=== PATIENT | female | born 1960 | race Hispanic/Latino ===

== ENCOUNTER 2022-05-12 11:49 | Emergency (ER) | payer SELFPAY ==
--- NOTE | 2022-05-12 13:57 | RAD REPORT ---
EXAM DESCRIPTION: RAD - Foot Right 3 View - 05/12/2022 1:38 pm CLINICAL HISTORY: fall COMPARISON: No comparisons FINDINGS/IMPRESSION: Mildly displaced fracture along the lateral aspect of the first distal phalanx at the articular surface. No malalignment. Calcaneal spurring. Mild midfoot degenerative changes.
--- NOTE | 2022-05-12 14:01 | RAD REPORT ---
EXAM DESCRIPTION: RAD - Ankle Right 3 View - 05/12/2022 1:38 pm CLINICAL HISTORY: foot pain COMPARISON: Foot Right 3 View dated 05/12/2022 FINDINGS/IMPRESSION: Suspected avulsion fractures along the dorsal aspect of the anterior process of the talus and navicular. Correlate with site of pain. Calcaneal spurring. No other fractures are stevie ntified.
--- NOTE | 2022-05-12 15:28 | EDPHYS ---
Physician Documentation [facility] Name: Alejandra Humphrey Age: 62 yrs Sex: Female : 1960 Arrival Date: 05/12/2022 Time: 11:51 Bed 12 Private MD: ED Physician Gurpreet Balderas HPI: 05/12 12:50 This 62 yrs old Female presents to ER via Ambulatory with complaints of Fall jmm Injury, Toe Injury. 12:50 Details of fall: The patient fell from an upright position, while walking. Onset: The jmm symptoms/episode began/occurred acutely, just prior to arrival. This is a 62 year old female with no chronic medical conditions that presents to the ED with complaints of right foot pain. Patient states slipping with her right foot bending forward. Mainly complains of pain to her right dorsum. . Historical: - Allergies: 12:17 Amoxicillin; jh6 12:17 Hydrocodone-Acetaminophen; jh6 - PMHx: 12:17 None; jh6 - Immunization history:: Adult Immunizations up to date, Client reports receiving the 2nd dose of the Covid vaccine. - Social history:: Smoking status: Patient denies any tobacco usage or history of. ROS: 16:17 Constitutional: Negative for fever, chills, and weight loss, Cardiovascular: Negative jmm for chest pain, palpitations, and edema, Respiratory: Negative for shortness of breath, cough, wheezing, and pleuritic chest pain. 16:17 MS/extremity: Positive for pain, swelling. 16:17 All other systems are negative. Exam: 16:17 Constitutional: This is a well developed, well nourished patient who is awake, alert, jmm and in no acute distress. Head/Face: atraumatic. Eyes: EOMI, no conjunctival erythema appreciated ENT: Moist Mucus Membranes Neck: Trachea midline, Supple Chest/axilla: Normal chest wall appearance and motion. Cardiovascular: Regular rate and rhythm. No edema appreciated Respiratory: Normal respirations, no respiratory distress appreciated Abdomen/GI: Non distended Back: Normal ROM Skin: General appearance color normal 16:17 Musculoskeletal/extremity: swelling noted to the right foot, ttp, 1st toe ttp. 16:17 Skin: Appearance: Color: normal in color. 16:17 Neuro: Orientation: is normal, Mentation: is normal, Memory: is normal. 16:17 Psych: Behavior/mood is pleasant, cooperative. Vital Signs: 12:12 BP 141 / 78; Pulse 90; Resp 17; Temp 97.8(O); Pulse Ox 98% on R/A; Weight 104.33 kg; 6 Height 5 ft. 7 in. (170.18 cm); Pain 8/10; 12:12 Body Mass Index 36.02 (104.33 kg, 170.18 cm) [facility] MDM: 12:50 Patient medically screened. [facility] 15:20 Data reviewed: vital signs, nurses notes. [facility] 15:26 Counseling: I had a detailed discussion with the patient and/or guardian regarding: the [facility] historical points, exam findings, and any diagnostic results supporting the discharge/admit diagnosis, radiology results, the need for outpatient follow up, to return to the emergency department if symptoms worsen or persist or if there are any questions or concerns that arise at home. 05/12 12:51 Order name: Foot Right 3 View XRAY; Complete Time: 14:05 [facility] 05/12 12:51 Order name: Ankle Right 3 View XRAY; Complete Time: 14:05 [facility] 05/12 14:07 Order name: Posterior Leg Splint; Complete Time: 15:07 [facility] Administered Medications: No medications were administered Disposition: 05/13 09:30 Co-signature as Attending Physician, Gurpreet Balderas DO I was immediately available on-site ms3 in the Emergency Department for consultation in the care of the patient.. Disposition Summary: 05/12/22 15:27 Discharge Ordered Location: Home [facility] Condition: Stable [facility] Diagnosis - Talus Fracture [facility] - Toe Fracture [facility] Followup: [facility] - With: Familia Sorto DPM - When: 2 - 3 days - Reason: Recheck today's complaints, Continuance of care, Re-evaluation by your physician Discharge Instructions: - Discharge Summary Sheet [facility] - Tarsal Navicular Fracture [facility] - Toe Fracture [facility] Forms: - Medication Reconciliation Form [facility] - Thank You Letter [facility] - Antibiotic Education [facility] - Prescription Opioid Use [facility] Prescriptions: - orphenadrine citrate 100 mg Oral Tablet Sustained Release - take 1 tablet by ORAL route 2 times per day As needed; 20 tablet; Refills: 0, [facility] Product Selection Permitted Signatures: Dispatcher [employer] EDMS Perez Mcintyre PA PA [facility] Gurpreet Balderas DO DO ms3 Joleen Hunter RN RN jh6 Corrections: (The following items were deleted from the chart) 05/12 16:14 12:50 This is a 62 year old female with no chronic medical conditions that presents to [facility] the ED with complaints of left foot pain. . [facility] 16:17 12:50 This is a 62 year old female with no chronic medical conditions that presents to [facility] the ED with complaints of right foot pain. Patient states tripping. [facility]
--- NOTE | 2022-05-12 15:28 | ER ---
Nurse's Notes [facility] Name: Alejandra Humphrey Age: 62 yrs Sex: Female : 1960 Arrival Date: 05/12/2022 Time: 11:51 Bed 12 Private MD: Diagnosis: Talus Fracture;Toe Fracture Presentation: 05/12 12:12 Chief complaint: Patient states: slipped on water and rt foot great toe bent under 6 causing pain and decreased rom. Coronavirus screen: Vaccine status: Patient reports receiving the 2nd dose of the covid vaccine. Ebola Screen: Patient negative for fever greater than or equal to 101.5 degrees Fahrenheit, and additional compatible Ebola Virus Disease symptoms Patient denies exposure to infectious person. Patient denies travel to an Ebola-affected area in the 21 days before illness onset. Initial Sepsis Screen: Does the patient meet any 2 criteria? No. Patient's initial sepsis screen is negative. Does the patient have a suspected source of infection? No. Patient's initial sepsis screen is negative. Risk Assessment: Do you want to hurt yourself or someone else? Patient reports no desire to harm self or others. Onset of symptoms was May 12, 2022. 12:12 Method Of Arrival: Ambulatory [facility] 12:12 Acuity: BASIA 4 [facility] 12:16 Care prior to arrival: Medication(s) given: Motrin, 800 mg. [facility] Triage Assessment: 12:15 General: Appears in no apparent distress. Behavior is calm, cooperative. Pain: [facility] Complains of pain in instep of left foot, dorsum of left foot, left first toe and Left first toenail Pain does not radiate. Pain radiates to right foot Pain currently is 8 out of 10 on a pain scale. Quality of pain is described as sharp, shooting, throbbing, Pain began suddenly, Is continuous, Aggravated by increased activity. Historical: - Allergies: 12:17 Amoxicillin; [facility] 12:17 Hydrocodone-Acetaminophen; [facility] - PMHx: 12:17 None; [facility] - Immunization history:: Adult Immunizations up to date, Client reports receiving the 2nd dose of the Covid vaccine. - Social history:: Smoking status: Patient denies any tobacco usage or history of. Screenin:50 Abuse screen: Denies threats or abuse. Nutritional screening: No deficits noted. jb4 Tuberculosis screening: No symptoms or risk factors identified. Fall Risk Fall in past 12 months (25 points). Total Alcantara Fall Scale indicates Low Risk Score (25-44 pts). Fall prevention measures have been instituted. Side Rails Up X 2 Placed close to Nursing Station Frequent Obs/Assesments occuring Family Present and informed to notify staff if they need to leave bedside As available Patient and Family Educated on Fall Prevention Program and strategies. Assessment: 15:50 Reassessment: Patient appears in no apparent distress at this time. Patient and/or jb4 family updated on plan of care and expected duration. Pain level reassessed. Patient is alert, oriented x 3, equal unlabored respirations, skin warm/dry/pink. Vital Signs: 12:12 BP 141 / 78; Pulse 90; Resp 17; Temp 97.8(O); Pulse Ox 98% on R/A; Weight 104.33 kg; 6 Height 5 ft. 7 in. (170.18 cm); Pain 8/10; 12:12 Body Mass Index 36.02 (104.33 kg, 170.18 cm) [facility] ED Course: 11:51 Patient arrived in ED. mr 11:54 Perez Mcintyre PA is PHCP. m 11:54 Gurpreet Balderas DO is Attending Physician. [facility] 12:14 Triage completed. 6 12:16 Arm band placed on right wrist. ice to rt foot. jh6 13:40 Foot Right 3 View XRAY In Process Unspecified. EDMS 13:40 Ankle Right 3 View XRAY In Process Unspecified. EDMS 14:25 Chucho Epstein, RN is Primary Nurse. jl7 15:07 Orthoglass splint: Posterior short lleg splint applied on right leg. zm 15:27 Familia Sorto DPM is Referral Physician. [facility] 15:50 Patient has correct armband on for positive identification. Bed in low position. Call jb4 light in reach. Side rails up X 1. 15:50 No provider procedures requiring assistance completed. Patient did not have IV access jb4 during this emergency room visit. Administered Medications: No medications were administered Medication: 15:50 VIS not applicable for this client. jb4 Outcome: 15:27 Discharge ordered by . [facility] 15:50 Discharged to home via wheelchair, with family. jb4 15:50 Condition: stable 15:50 Discharge instructions given to patient, Instructed on discharge instructions, follow up and referral plans. medication usage, Demonstrated understanding of instructions, follow-up care, medications, Prescriptions given X 1. 15:51 Patient left the ED. jb4 Signatures: Dispatcher [employer] EDMS Perez Mcintyre PA PA jmm Rivera, Johanne mr Piero Valdes, RN RN jb4 Chucho Epstein RN RN jl7 Joleen Hunter RN RN jh6 Mica Sharma Corrections: (The following items were deleted from the chart) 15:51 15:50 Discharged to home ambulatory, jb4 jb4
[2022-05-12 16:02] VITALS: BP 141/78; TEMP 97.8; O2SAT 98
== END 2022-05-12 15:51 | disposition home or self-care (01) ==
LOC: ER 11:49
PROC: 2W3QX1Z Immobilization of Right Lower Leg using Splint (ICD-10-PCS; principal; 2022-05-12)
DX: S92.401A Displaced unspecified fracture of right great toe, initial encounter for closed fracture (principal); S92.101A Unspecified fracture of right talus, initial encounter for closed fracture

== ENCOUNTER 2025-03-17 21:14 | Emergency (ER) | payer OTHER, SELFPAY ==
--- OUTSIDE RECORDS SUMMARY | 2025-03-17 21:30 | XMS REPORT | Continuity of Care Document ---
Author Name Unknown Address [address] [facility] [place] [address] Organization [facility] [place] Address [address] [facility] [place] [address] Care Team Providers Care Interventional Pain Physician Name Role Phone IRMA MARROQUIN Attending Clinician Un[facility] LAB Attending Clinician Unavailable Payers Payer Name Policy Type Policy Number Effective Date Expirati on Date Source DailyBurn [employer] CLASSIC SIMPLE 7 [id number] 2024 00:00:00 [facility] RUDI [employer] [employer]AY FOCUS 9 [id number] 2024 00:00:00 Problems Condition Name Condition Details Condition Category Status Onset Date Resolution Date Last Treatment Date Treating Clinician Comments Source Encounter for screening for malignant neoplasm of colon Encounter for screening for malignant neoplasm of colon Disease Active 01-28 00:00: 00 Albertina Seybold - Externa l Class 1 obesity due to excess calories without serious comorbidit y with body mass index (BMI) of 33.0 to 33.9 in adult Class 1 obesity due to excess calories without serious comorbidit y with body mass index (BMI) of 33.0 to 33.9 in adult Disease Active 01-28 00:00: 00 Albertina Seybold - Externa l Depression with anxiety Depression with anxiety Disease Active 12-24 00:00: 00 Albertina Seybold - Externa l Seasonal allergies Seasonal allergies Disease Active Albertina Seybold - Externa l Allergies, Adverse Reactions, Alerts Allergy Name Allergy Type Status Severity Reaction(s) Onset Date Inactive Date Treating Clinician Comments Source Penicill ins Propensi ty to adverse reaction s Active 12-24 00:00: 00 Albertina suh Social History Social Habit Start Date Stop Date Quantity Comments Source ASSERTION Not Albertina Carlos - External Sexual orientation Yina mota Terrance - External Alcoholic beverage intake 2025-01-28 00:00:00 2025-01-28 00:00:00 Lifetime non-drinker (finding) Albertina Carlos - External History of Social function 2025-01-28 00:00:00 2025-01-28 00:00:00 Albertina Carlos - External Tobacco use and exposure 2024-12-24 00:00:00 2024-12-24 00:00:00 Smokeless tobacco non-user Albertina Carlos - External Sex 2023-08-31 21:43:30 2023-08-31 21:43:30 Female (finding) Albertina Carlos - External Sex assigned at 1960 00:00:00 1960 00:00:00 Albertina Carlos - External Smoking Status Start Date Stop Date Source Never smoked tobacco Albertina Carlos - External Medications Ordered Medication Name Filled Medication Name Start Date Stop Date Current Medication? Ordering Clinician Indication Dosage Frequency Signature (SIG) Comments Components Source Loratadine 10 MG oral Capsule 01-28 11:54: 05 Yes 10mg QD Take 1 capsule (10 mg total) by mouth daily. Albertina suh Multiple Vitamins-Mi nerals (PoolamiUM MINIS WOMEN 50+ OR) 01-28 11:54: 05 Yes 1{tbl} QD Take 1 tablet by mouth daily. Albertina suh Loratadine 10 MG oral Capsule 12-24 16:19: 04 Yes 10mg QD Take 1 capsule (10 mg total) by mouth daily. Albertina suh Multiple Vitamins-Mi nerals (CENTRUM MINIS WOMEN 50+ OR) 12-24 16:19: 04 Yes 1{tbl} QD Take 1 tablet by mouth daily. Albertina suh Quetiapine Fumarate 50 MG oral Tablet 2-18 00:00: 00 Yes 50mg Take 1 tablet (50 mg total) by mouth at bedtime. Albertina Martinsa angeli Sertraline HCl 50 MG oral Tablet 12-11 00:00: 00 Yes 50mg QD Take 1 tablet (50 mg total) by mouth daily. Albertina Martinsa angeli Albuterol HFA 108 (90 Base) MCG/ACT IN AERS 2- 00:00: 00 Yes 1{puff} Q.25D Inhale 1-2 puffs into the lungs 4 times daily. Albertina suh Vital Signs Vital Name Observation Time Observation Value Comments S ource Systolic blood pressure 2025-01-28 16:53:00 133 mm[Hg] Albertina Causey ld - External Diastolic blood pressure 2025-01-28 16:53:00 81 mm[Hg] Albertina chava ortiz - External Heart rate 2025-01-28 16:53:00 73 /min Trixie Carlos - External Body temperature 2025-01-28 16:53:00 36.67 Chantel Albertina armandosigrid - External Respiratory rate 2025-01-28 16:53:00 16 /min Albertina Sernasigrid - External Body height 2025-01-28 16:53:00 170.2 cm Zuri Carlos - External Body weight 2025-01-28 16:53:00 97.523 kg Zuri Carlos - External BMI 2025-01-28 16:53:00 33.67 kg/m2 Zuri Carlos - External Oxygen saturation in Arterial blood by Pulse oximetry 2025-01-28 16:53:00 94 /min Albertian Causey ld - External Systolic blood pressure 2024-12-24 22:59:00 138 mm[Hg] Albertina chava ortiz - External Diastolic blood pressure 2024-12-24 22:59:00 70 mm[Hg] Albertina chava angel - External Heart rate 2024-12-24 22:15:00 67 /min Trixie Carlos - External Body temperature 2024-12-24 22:15:00 36.83 Chantel Albertina armandoold - External Respiratory rate 2024-12-24 22:15:00 16 /min Albertina armandoold - External Body height 2024-12-24 22:15:00 170.2 cm Zuri ey Seybold - External Body weight 2024-12-24 22:15:00 100.245 kg Zuri ey Seybold - External BMI 2024-12-24 22:15:00 34.61 kg/m2 Zuri ey Seybold - External Oxygen saturation in Arterial blood by Pulse oximetry 2024-12-24 22:15:00 100 /min Albertina Causey ld - External Procedures Procedure Date / Time Performed Performing Clinicia n Source QUANTAF 2025-01-28 12:30:35 Jonas Irma reyna Seybold - External Encounters Start Date/Time End Date/Time Encounter Type Admission Type Attending [facility] Care Department Encounter ID Source 2025-02-01 00:00:00 2025-02-01 00:00:00 Outpatient IRMA MARROQUIN [id number] [facility]ina [facility] 2025-01-28 12:45:00 2025-01-28 12:45:00 Outpatient LAB90 ALBERTINA MATTSON [id number] Albertina [facility] 2025-01-28 12:00:00 2025-01-28 12:00:00 Outpatient JONASIRMA [id number] Albertina [facility] 2025-01-22 00:00:00 2025-01-22 00:00:00 Outpatient IRMA MARROQUIN [id number] [facility] 2025-01-21 09:02:59 2025-01-21 09:02:59 Outpatient SFA SFA [id number] Ghanshyam F Jin 2024-12-24 16:30:00 2024-12-24 16:30:00 Outpatient IRMA MARROQUIN [id number] [facility] 2024-12-08 10:17:27 2024-12-08 10:17:27 Outpatient SFA SFA [id number] Ghanshyam F Jin 2024-11-05 08:48:28 2024-11-05 08:48:28 Outpatient SFA SFA [id number] Ghanshyam Yue Jin 2024-08-06 17:35:35 2024-08-06 17:35:35 Outpatient SFA SFA [id number] Ghanshyam Abdi 2024-05-31 15:55:24 2024-05-31 15:55:24 Outpatient SFA SFA [id number] Ghanshyam Abdi 2024-05-29 08:30:00 2024-05-29 08:30:00 Outpatient IRMA MARROQUIN ALBERTINA MATTSON [id number] Albertina Carlos 2024-03-26 12:07:20 2024-03-26 12:07:20 Outpatient SFA SFA [id number] Ghanshyam Abdi 2024-01-30 10:16:29 2024-01-30 10:16:29 Outpatient SFA SFA [id number] Ghanshyam Abdi 2024-01-25 08:45:08 2024-01-25 08:45:08 Outpatient SFA SFA [id number] Ghanshyam Abdi 2023-12-19 10:09:06 2023-12-19 10:09:06 Outpatient SFA SFA [id number] Ghanshyam Abdi 2023-12-07 09:12:45 2023-12-07 09:12:45 Outpatient SFA SFA 4 Ghanshyam Abdi 2023-12-05 09:10:46 2023-12-05 09:10:46 Outpatient SFA SFA [id number] Ghanshyam Abdi 2023-08-10 10:41:51 2023-08-10 10:41:51 Outpatient SFA SFA [id number] Ghanshyam Abdi 2023-07-11 12:18:32 2023-07-11 12:18:32 Outpatient SFA SFA [id number] Ghanshyam Abdi 2023-07-04 09:48:45 2023-07-04 09:48:45 Outpatient SFA SFA [id number] Ghanshyam Abdi 2023-05-26 11:29:46 2023-05-26 11:29:46 Outpatient SFA SFA [id number] Ghanshyam Abdi 2023-05-09 16:59:22 2023-05-09 16:59:22 Outpatient SFA SFA [id number] Ghanshyam Abdi Results Test Description Test Time Test Comments Results Result Co mments Source Albertina Carlos - ExternalVITAMIN D, 25 [id number] 02:08:33* Test Item Value Reference Range Interpretation Comme [facility] VITAMIN D, 25 OH (test code = 4958) 30 NG/ML SEE BELOW NOTE: 25-HYDR OXYVITAMIN D ASSAY INCLUDES 25-HYDROXYVITAMIN D2 AND D3. INTERPRETIVE RANGES PEDIATRIC (<17 YEARS) . . . . . . . . . . . NG/ML 20-100ADULT: INSUFFICIENT . . . . . . . . . . . . . . NG/ML <20 SUBOPTIMAL . . . . . . . . . . . . . . . NG/ML 20-29 OPTIMAL . . . . . . . . . . . . . . . . . NG/ML 30-100 UNLESS OTHERWISE INDICATED, ALL TESTING PERFORMED AT [facility] [address] [place] [address] NET DEVELOPER ARCHITECT: SELENA JO M.D. CLIA NUMBER [id number] [facility] [place]. [id number] TSH, THIRD [id number] 00:29:59* Test Item Value Reference Range Interpretation Comme [facility] TSH, THIRD GENERATION (test code = 2821) 0.780 UIU/ML 0.400-4.100 COMPREHENSIVE METABOLIC [id number] 00:29:07* Test Item Value Reference Range Interpretation Comme [facility] GLUCOSE (test code = 2217) 90 MG/DL 70-99 BUN (test code = 2208) 13 MG/DL 8-23 CREATININE (test code = 2214) 0.70 MG/DL 0.60-1.30 eGFR (2020 CKD-EPI) (test co de = 36105) 96 ML/MIN/1.73 >60 CALC BUN/CREAT (test code = 2235) 19 RATIO 6-28 SODIUM (test code = 2231) 142 MEQ/L 133-146 POTASSIUM (test code = 2228) 4.5 MEQ/L 3.5-5.4 CHLORIDE (test code = 2215) 107 MEQ/L 95-107 CARBON DIOXIDE (test code = 2206) 26 MEQ/L 19-31 CALCIUM (test code = 2209) 9.1 MG/DL 8.5-10.5 PROTEIN, TOTAL (test code = 222) 6.2 G/DL 6.1-8.3 ALBUMIN (test code = 2201) 4.2 G/DL 3.5-5.2 CALC GLOBULIN (test code = 2240) 2.0 G/DL 1.9-3.7 CALC A/G RATIO (test code = 2233) 2.1 RATIO 1.0-2.6 BILIRUBIN, TOTAL (test code = 7) 0.4 MG/DL <=1.2 ALKALINE PHOSPHATASE (test code = 4) 194 U/L 40-140 H AST (test code = 2218) 27 U/L 9-40 ALT (test code = 2219) 24 U/L 5-40 LIPID [id number] 00:29:07* Test Item Value Reference Range Interpretation Comme nts CHOLESTEROL (test code = 0) 261 MG/DL <200 H TRIGLYCERIDES (test code = 2232) 120 MG/DL <150 HDL CHOLESTEROL (test code = 0) 59 MG/DL >39 CALC LDL CHOL (test code = 2236) 177 MG/DL <100 H NOTE: CALCULATED LDL IS BASED ON ATIF-ENCISO METHOD WHICHINCLUDES ADJUSTABLE TRIGLYCERIDE:VLDL CHOLESTEROL RATIO.THIS FACTOR VARIES BY MEASURED TRIGLYCERIDE AND NON-HDLCHOLESTEROL CONCENTRATIONS WITH INCREASED CALCULATED LDL SEENIN HIGHER TRIGLYCERIDE OR LOWER NON-HDL SPECIMENS. FOR MOREINFORMATION, SEE CLIENT ANNOUNCEMENT AT [email or web address] [email or web address] RATIO LDL/HDL (test code = 2237) 3.00 RATIO <3.22 HEMOGLOBIN [id number] 03:11:28* Test Item Value Reference Range Interpretation Comme nts HEMOGLOBIN A1c (test code = 21265) 5.2 % 4.2-5.6 CBC W/AUTO DIFF WITH [id number] 02:44:35* Test Item Value Reference Range Interpretation Comme nts WBC (test code = 1001) 5.1 K/UL 3.5-11.0 RBC (test code = 1002) 4.08 M/UL 3.80-5.40 HEMOGLOBIN (test code = 1003) 12.6 G/DL 11.5-15.5 HEMATOCRIT (test code = 1004) 37.8 % 34.0-45.0 MCV (test code = 1005) 92.6 fL 80.0-99.0 MCH (test code = 1006) 30.9 PG 25.0-33.0 MCHC (test code = 1007) 33.3 G/DL 31.0-36.0 RDW (test code = 1038) 12.2 % 11.5-15.0 NEUTROPHILS (test code = 1008) 56.0 % LYMPHOCYTES (test code = 1010) 32.3 % MONOCYTES (test code = 1011) 6.7 % EOSINOPHILS (test code = 1012) 4.2 % BASOPHILS (test code = 1013) 0.6 % IMMATURE GRANULOCYTES (test code = 1036) 0.2 % NUCLEATED RBCS (test code = 1065) 0.0 /100 WBC'S See_Comment [Automated [employer] ge] The system which generated this result transmitted reference range: 0.0. The reference range was not used to interpret this result as normal/abnormal. PLATELET COUNT (test code = 1015) 330 K/UL 130-400 ABSOLUTE NEUTROPHILS (test code = 1066) 2.83 K/UL 1.50-7.50 ABSOLUTE LYMPHOCYTES (test code = 1067) 1.63 K/UL 1.00-4.00 ABSOLUTE MONOCYTES (test code = 1068) 0.34 K/UL 0.20-1.00 ABSOLUTE EOSINOPHILS (test code = 1040) 0.21 K/UL 0.00-0.50 ABSOLUTE BASOPHILS (test code = 1069) 0.03 K/UL 0.00-0.20 ABS IMMATURE GRANULOCYTES (test code = 1020) 0.01 K/UL 0.00-0.10 ABS NUCLEATED RBCS (test code = 22834) 0.00 K/UL 0.00-0.11 LIPID [id number] 06:56:10* Test Item Value Reference Range Interpretation Comme nts CHOLESTEROL (test code = 2210) 288 MG/DL <200 H TRIGLYCERIDES (test code = 2232) 204 MG/DL <150 H HDL CHOLESTEROL (test code = 2220) 69 MG/DL >39 CALC LDL CHOL (test code = 2237) 183 MG/DL <100 H NOTE: CALCULATED LDL IS BASED ON ATIF-ENCISO METHOD WHICHINCLUDES ADJUSTABLE TRIGLYCERIDE:VLDL CHOLESTEROL RATIO.THIS FACTOR VARIES BY MEASURED TRIGLYCERIDE AND NON-HDLCHOLESTEROL CONCENTRATIONS WITH INCREASED CALCULATED LDL SEENIN HIGHER TRIGLYCERIDE OR LOWER NON-HDL SPECIMENS. FOR MOREINFORMATION, SEE CLIENT ANNOUNCEMENT AT [email or web address] [email or web address] RATIO LDL/HDL (test code = 2237) 2.65 RATIO <3.22 COMPREHENSIVE METABOLIC [id number] 06:56:10* Test Item Value Reference Range Interpretation Comme nts GLUCOSE (test code = 2216) 104 MG/DL 70-99 H BUN (test code = 2207) 12 MG/DL 8-23 CREATININE (test code = 2213) 0.65 MG/DL 0.60-1.30 eGFR (2020 CKD-EPI) (test code = 82152) 98 ML/MIN/1.73 >60 CALC BUN/CREAT (test code = 2234) 18 RATIO 6-28 SODIUM (test code = 2230) 140 MEQ/L 133-146 POTASSIUM (test code = 2227) 4.7 MEQ/L 3.5-5.4 CHLORIDE (test code = 2214) 103 MEQ/L 95-107 CARBON DIOXIDE (test code = 2205) 21 MEQ/L 19-31 CALCIUM (test code = 2208) 9.8 MG/DL 8.5-10.5 PROTEIN, TOTAL (test code = 2228) 6.7 G/DL 6.1-8.3 ALBUMIN (test code = 2200) 4.7 G/DL 3.5-5.2 CALC GLOBULIN (test code = 2240) 2.0 G/DL 1.9-3.7 CALC A/G RATIO (test code = 2233) 2.4 RATIO 1.0-2.6 BILIRUBIN, TOTAL (test code = 2206) 0.3 MG/DL <=1.2 ALKALINE PHOSPHATASE (test code = 2203) 172 U/L 40-140 H AST (test code = 2217) 27 U/L 9-40 ALT (test code = 221) 19 U/L 5-40 UNLESS OTHERWISE INDICATED, ALL TESTING PERFORMED AT [facility] [address] [place] [address] NET DEVELOPER ARCHITECT: SELENA JO M.D. CLIA NUMBER [id number] [facility] [place] [place]. [id number] HEMOGLOBIN [id number] 04:37:14* Test Item Value Reference Range Interpretation Comme nts HEMOGLOBIN A1c (test code = 29881) 5.5 % 4.2-5.6 CBC W/AUTO DIFF WITH [id number] 03:05:18* Test Item Value Reference Range Interpretation Comme nts WBC (test code = 1001) 5.7 K/UL 3.5-11.0 RBC (test code = 1002) 4.24 M/UL 3.80-5.40 HEMOGLOBIN (test code = 1003) 13.3 G/DL 11.5-15.5 HEMATOCRIT (test code = 1004) 38.3 % 34.0-45.0 MCV (test code = 1005) 90.3 fL 80.0-99.0 MCH (test code = 1006) 31.4 PG 25.0-33.0 MCHC (test code = 1007) 34.7 G/DL 31.0-36.0 RDW (test code = 1038) 11.9 % 11.5-15.0 NEUTROPHILS (test code = 1008) 59.7 % LYMPHOCYTES (test code = 1010) 32.2 % MONOCYTES (test code = 1011) 5.8 % EOSINOPHILS (test code = 1012) 1.4 % BASOPHILS (test code = 1013) 0.5 % IMMATURE GRANULOCYTES (test code = 1036) 0.4 % NUCLEATED RBCS (test code = 1065) 0.0 /100 WBC'S See_Comment [Automated messa ge] The system which generated this result transmitted reference range: 0.0. The reference range was not used to interpret this result as normal/abnormal. PLATELET COUNT (test code = 1015) 331 K/UL 130-400 ABSOLUTE NEUTROPHILS (test code = 1066) 3.39 K/UL 1.50-7.50 ABSOLUTE LYMPHOCYTES (test code = 1067) 1.83 K/UL 1.00-4.00 ABSOLUTE MONOCYTES (test code = 1068) 0.33 K/UL 0.20-1.00 ABSOLUTE EOSINOPHILS (test code = 1040) 0.08 K/UL 0.00-0.50 ABSOLUTE BASOPHILS (test code = 1069) 0.03 K/UL 0.00-0.20 ABS IMMATURE GRANULOCYTES (test code = 1020) 0.02 K/UL 0.00-0.10 ABS NUCLEATED RBCS (test code = 52024) 0.00 K/UL 0.00-0.11 TSH, THIRD [id number] 06:56:39* Test Item Value Reference Range Interpretation Comme nts TSH, THIRD GENERATION (test code = 2821) 1.140 UIU/ML 0.400-4.100 UNLESS OTHERWISE INDICATED, ALL TESTING [facility]MED [facility] [address] [place] [address] NET DEVELOPER ARCHITECT: MERRICK QUARLES M.D. CLIA NUMBER [id number] [facility] [place] [place]. [id number] CBC W/AUTO DIFF WITH [id number] 02:39:46* Test Item Value Reference Range Interpretation Comme nts WBC (test code = 1001) 7.8 K/UL 3.5-11.0 RBC (test code = 1002) 4.41 M/UL 3.80-5.40 HEMOGLOBIN (test code = 1003) 13.4 G/DL 11.5-15.5 HEMATOCRIT (test code = 1004) 38.8 % 34.0-45.0 MCV (test code = 1005) 88.0 fL 80.0-99.0 MCH (test code = 1006) 30.4 PG 25.0-33.0 MCHC (test code = 1007) 34.5 G/DL 31.0-36.0 RDW (test code = 1038) 12.5 % 11.5-15.0 NEUTROPHILS (test code = 1008) 60.4 % LYMPHOCYTES (test code = 1010) 31.3 % MONOCYTES (test code = 1011) 6.5 % EOSINOPHILS (test code = 1012) 0.9 % BASOPHILS (test code = 1013) 0.5 % IMMATURE GRANULOCYTES (test code = 1036) 0.4 % NUCLEATED RBCS (test code = 1065) 0.0 /100 WBC'S See_Comment [Automated messa ge] The system which generated this result transmitted reference range: 0.0. The reference range was not used to interpret this result as normal/abnormal. PLATELET COUNT (test code = 1015) 372 K/UL 130-400 ABSOLUTE NEUTROPHILS (test code = 1066) 4.71 K/UL 1.50-7.50 ABSOLUTE LYMPHOCYTES (test code = 1067) 2.44 K/UL 1.00-4.00 ABSOLUTE MONOCYTES (test code = 1068) 0.51 K/UL 0.20-1.00 ABSOLUTE EOSINOPHILS (test code = 1040) 0.07 K/UL 0.00-0.50 ABSOLUTE BASOPHILS (test code = 1069) 0.04 K/UL 0.00-0.20 ABS IMMATURE GRANULOCYTES (test code = 1020) 0.03 K/UL 0.00-0.10 ABS NUCLEATED RBCS (test code = 12867) 0.00 K/UL 0.00-0.11
--- NOTE | 2025-03-17 23:38 | RAD REPORT ---
EXAMINATION: XR Elbow Right 3 View CLINICAL INDICATION: Female, 64 years old. fall RIGHT TECHNIQUE: 3 view radiographs of the right elbow were obtained. COMPARISON: No prior exam. FINDINGS: No evidence of fracture or dislocation. Normal alignment. No joint effusion. No evidence of arthropathy. No suspicious focal bone lesion. Soft tissues are unremarkable. IMPRESSION: No acute or significant abnormalities.
--- NOTE | 2025-03-17 23:38 | RAD REPORT ---
PROCEDURE: CT Head and Cervical Spine Without Intravenous Contrast CLINICAL INDICATION: The patient is 64 years old and is Female; head injury TECHNIQUE: Axial computed tomography images of the head/brain and cervical spine without intravenous contrast. Sagittal and coronal reformatted images were created and reviewed. This CT exam was performed using one or more of the following dose reduction techniques: automated exposure control, adjustmen t of the mA and/or kV according to patient size, and/or use of iterative reconstruction technique. DLP: 1262 mGy*cm COMPARISON: None. FINDINGS: BRAIN: Cerebral volume loss and chronic small vessel ischemic changes. No hemorrhage. No mass effect or midline shift. VENTRICLES: Unremarkable. No ventriculomegaly. SKULL: No acute fracture. SINUSES: Unremarkable as visualized. No acute sinusitis. MASTOID AIR CELLS: Unremarkable as visualized. No mastoid effusion. VERTEBRAE: Midcervical spondylosis, worse at C5-6 and C6-7. Straightening of the cervical lordosis. No acute fracture. DISCS/SPINAL CANAL/NEURAL FORAMINA: Multilevel facet and uncovertebral joint hypertrophy. No spinal canal stenosis. SOFT TISSUES: Unremarkable. IMPRESSION: 1. No acute intracranial hemorrhage, hydrocephalus or herniation. 2. No acute cervical spine fracture or subluxation. 3. Straightening of the cervical lordosis. Findings may be positional or due to muscle spasm. 4. Midcervical spondylosis, worse at C5-6 and C6-7. 5. Cerebral volume loss and chronic small vessel ischemic changes. Consider MRI brain for further evaluation. Electronically signed by: Jase Peterson DO 03/17/2025 11:26 PM CDT 9 Due to temporary technical issues with the PACS/Coeurative reporting system, reports are being yudy d by the in-house radiologist without review as a courtesy to ensure prompt reporting the interpreting radiologist is fully responsible for the content of the report. Transcribed Date/Time: 03/17/2025 11:37 PM
--- NOTE | 2025-03-17 23:39 | RAD REPORT ---
EXAM: XR Knee Right 3 View HISTORY: [facility] MAIN PAIN Bed Name: 11 COMPARISON: None TECHNIQUE: 3 views of the right knee were obtained. FINDINGS: No knee effusion is seen. There is no evidence of acute fracture or dislocation. Mild-to-m oderate degenerative changes are seen. No soft tissue swelling or other soft tissue abnormality is present. IMPRESSION: No evidence of acute osseous abnormality. Wicf-dm-dgxbagoa tricompartmental osteoarthriti c changes.
--- NOTE | 2025-03-17 23:40 | RAD REPORT ---
EXAMINATION: XR Ankle Right 3 View CLINICAL INDICATION: Female, 64 years old. [facility] MAIN right ankle pain Bed Name: TECHNIQUE: 3 view radiographs of the right ankle were obtained. COMPARISON: 05/12/2022 FINDINGS: No bone or joint abnormality seen. Moderate calcaneal spur. IMPRESSION: No acute osseous abnormalities. Moderate calcaneal spur.
--- NOTE | 2025-03-17 23:42 | RAD REPORT ---
EXAMINATION: XR Foot Right 3 View CLINICAL INDICATION: Female, 64 years old. [facility] MAIN Right foot pain Bed Name: TECHNIQUE: 3 view radiographs of the right foot were obtained. COMPARISON: 07/13/2022. FINDINGS: Triangular fracture fragments along the bases of the first and second proximal phalanges. M edial and dorsal soft tissue swelling. Moderate calcaneal spur. No evidence of arthropathy or other focal bone lesion. Mild midfoot and interphalangeal joint degenerative changes. IMPRESSION: Small triangular fracture fragments along the bases of the first and second proximal phalanges.
--- NOTE | 2025-03-18 00:31 | EDPHYS ---
Physician Documentation [facility] Name: Alejandra Humphrey Age: 64 yrs Sex: Female : 1960 Arrival Date: 03/17/2025 Time: 21:14 Bed 11 Private MD: ED Physician Erasmo Frausto HPI: 03/17 21:33 This 64 yrs old Female presents to ER via Unassigned with complaints of Fall sp4 Injury. 03/18 20:35 64-year-old female presents complaining of a fall out of swimming pool. Head injury, sp4 presents with right elbow contusion and abrasion, presents with a right knee contusion and abrasion, presents with a right foot with multiple abrasions and pain. Also right foot swelling.. Historical: - Allergies: 03/17 21:51 Amoxicillin; ha1 21:51 Hydrocodone-Acetaminophen; ha1 - PMHx: 21:51 Depressive disorder; ha1 - Immunization history:: Adult Immunizations unknown. - Infectious Disease History:: Denies. - Social history:: Smoking status: unknown. - Family history:: not pertinent. ROS: 03/18 20:35 Constitutional: Negative for fever, chills, and weight loss, positive for head sp4 injury, right elbow contusion, positive for right elbow abrasion, positive for right knee contusion, positive right knee abrasion, positive for right foot pain swelling abrasion All other systems are negative, Exam: 20:35 Constitutional: This is a well developed, well nourished patient who is awake, alert, sp4 and in no acute distress. Intoxicated female, Head/Face: Normocephalic, atraumatic. C-collar in place Eyes: Pupils equal round and reactive to light, extra-ocular motions intact. Lids and lashes normal. Conjunctiva and sclera are not injected. Cornea within normal limits. Periorbital areas with no swelling, redness, or edema. ENT: Nares patent. No nasal discharge, no septal abnormalities noted. Tympanic membranes are normal and external auditory canals are clear. Oropharynx with no redness, swelling, or masses, exudates, or evidence of obstruction, uvula midline. Mucous membranes moist. Neck: Trachea midline, no thyromegaly or masses palpated, c-collar in place Chest/axilla: Normal chest wall appearance and motion. Nontender with no deformity. No lesions are appreciated. Cardiovascular: Regular rate and rhythm with a normal S1 and S2. No gallops, murmurs, or rubs. Normal PMI, no JVD. No pulse deficits. Respiratory: Lungs have equal breath sounds bilaterally, clear to auscultation and percussion. No rales, rhonchi or wheezes noted. No increased work of breathing, no retractions or nasal flaring. Abdomen/GI: Soft, with normal bowel sounds. No distension or tympany. No guarding or rebound. No evidence of tenderness throughout. Back: No spinal tenderness. No costovertebral tenderness. Skin: Warm, dry with normal turgor. Normal color with no rashes, no lesions, and no evidence of cellulitis. MS/ Extremity: Pulses equal, no cyanosis. Neurovascular intact. Full, normal range of motion. Positive for right foot swelling contusion abrasion to . Positive right foot swelling, positive right knee abrasion, positive right elbow abrasion Neuro: Awake and alert, GCS 15, oriented to person, place, time, and situation. Cranial nerves II-XII grossly intact. Motor strength 5/5 in all extremities. Sensory grossly intact. Psych: Awake, alert, with orientation to person, place and time. Behavior, mood, and affect are within normal limits Vital Signs: 03/17 21:41 BP 115 / 78; Pulse 84; Resp 18; Temp 98.2(O); Pulse Ox 98% on R/A; Weight 95.25 kg; oe Height 5 ft. 7 in. ; 23:00 BP 127 / 68; Pulse 79; Resp 18 S; Pulse Ox 98% on R/A; ha1 03/18 01:00 BP 125 / 67; Pulse 81; Resp 16 S; Pulse Ox 98% on R/A; ha1 03/17 21:41 Body Mass Index 32.89 (95.25 kg, 170.18 cm) oe [place] Coma Score: 03/17 21:40 Eye Response: spontaneous(4). Motor Response: obeys commands(6). Verbal Response: ha1 oriented(5). Total: 15. 03/18 20:35 Eye Response: spontaneous(4). Motor Response: obeys commands(6). Verbal Response: sp4 oriented(5). Total: 15. Trauma Score (Adult): 03/17 21:40 Eye Response: spontaneous(1); Verbal Response: oriented(1); Motor Response: obeys ha1 commands(2); Systolic BP: > 89 mm Hg(4); Respiratory Rate: 10 to 29 per min(4); Jacqueline Score: 15; Trauma Score: 12 Procedures: 03/18 00:28 Splinting: Splint applied to right calf, right Achilles and right heel using Ortho 3D sp4 boot, applied by myself. Examined by me, post splint application: neurovascular intact, 2+ distal pulses palpable, brisk capillary refill noted, Patient tolerated well, Ortho boot applied without problem. MDM: 03/17 21:42 Medical Screening Exam initiated sp4 03/18 00:04 ED course: EXAMINATION: XR Elbow Right 3 View CLINICAL INDICATION: Female, 64 years sp4 old. fall RIGHT TECHNIQUE: 3 view radiographs of the right elbow were obtained. COMPARISON: No prior exam. FINDINGS: No evidence of fracture or dislocation. Normal alignment. No joint effusion. No evidence of arthropathy. No suspicious focal bone lesion. Soft tissues are unremarkable. IMPRESSION: No acute or significant abnormalities.. 00:05 ED course: DLP: 1262 mGy*cm COMPARISON: None. FINDINGS: BRAIN: Cerebral volume loss and sp4 chronic small vessel ischemic changes. No hemorrhage. No mass effect or midline shift. VENTRICLES: Unremarkable. No ventriculomegaly. SKULL: No acute fracture. SINUSES: Unremarkable as visualized. No acute sinusitis. MASTOID AIR CELLS: Unremarkable as visualized. No mastoid effusion. VERTEBRAE: Midcervical spondylosis, worse at C5-6 and C6-7. Straightening of the cervical lordosis. No acute fracture. DISCS/SPINAL CANAL/NEURAL FORAMINA: Multilevel facet and uncovertebral joint hypertrophy. No spinal canal stenosis. SOFT TISSUES: Unremarkable. IMPRESSION: 1. No acute intracranial hemorrhage, hydrocephalus or herniation. 2. No acute cervical spine fracture or subluxation. 3. Straightening of the cervical lordosis. Findings may be positional or due to muscle spasm. 4. Midcervical spondylosis, worse at C5-6 and C6-7. 5. Cerebral volume loss and chronic small vessel ischemic changes. Consider MRI brain for further evaluation. Electronically signed by: Jase Peterson DO 03/17/2025 11:26 PM. ED course: EXAM: XR Knee Right 3 View HISTORY: [facility] PAIN Bed Name: 11 COMPARISON: None TECHNIQUE: 3 views of the right knee were obtained. FINDINGS: No knee effusion is seen. There is no evidence of acute fracture or dislocation. [id number] degenerative changes are seen. No soft tissue swelling or other soft tissue abnormality is present. IMPRESSION: No evidence of acute osseous abnormality. [id number] tricompartmental osteoarthritic changes. . ED course: EXAMINATION: XR Foot Right 3 View CLINICAL INDICATION: Female, 64 years old. [facility] Right foot pain Bed Name: 11 TECHNIQUE: 3 view radiographs of the right foot were obtained. COMPARISON: 07/13/2022. FINDINGS: Triangular fracture fragments along the bases of the first and second proximal phalanges. Medial and dorsal soft tissue swelling. Moderate calcaneal spur. No evidence of arthropathy or other focal bone lesion. Mild midfoot and interphalangeal joint degenerative changes. IMPRESSION: Small triangular fracture fragments along the bases of the first and second proximal phalanges. . ED course: EXAMINATION: XR Ankle Right 3 View CLINICAL INDICATION: Female, 64 years old. [facility] right ankle pain Bed Name: 11 TECHNIQUE: 3 view radiographs of the right ankle were obtained. COMPARISON: 05/12/2022 FINDINGS: No bone or joint abnormality seen. Moderate calcaneal spur. IMPRESSION: No acute osseous abnormalities. Moderate calcaneal spur. . 20:37 Differential diagnosis: abrasion, closed head injury, contusion, multiple trauma, sp4 sprain, strain. Data reviewed: vital signs, nurses notes, radiologic studies, CT scan, plain films. Consideration of Admission/Observation Escalation of care including admission/observation considered. ED course: Right foot was splinted with a Ortho boot.. 03/17 21:40 Order name: Elbow Right 3 View XRAY; Complete Time: 00:09 sp4 03/17 21:41 Order name: CT Head C Spine sp4 03/17 21:41 Order name: Knee Right 3 View XRAY; Complete Time: 00:09 sp4 03/17 21:41 Order name: Foot Right 3 View XRAY; Complete Time: 00:09 sp4 03/17 21:41 Order name: Ankle Right 3 View XRAY; Complete Time: 00:09 sp4 03/17 21:42 Order name: Wound Care; Complete Time: sp4 03/18 00:28 Order name: Orthopedic shoe: Ortho boot to right foot applied by MD; Complete Time: 4 00:43 Administered Medications: 01:00 Drug: Ibuprofen PO 800 mg PO once Route: PO; ha1 01:20 Follow up: Response: No adverse reaction; Marked relief of symptoms; Pain is decreased ha1 01:00 Drug: traMADol PO 100 mg PO once Route: PO; ha1 01:20 Follow up: Response: No adverse reaction; Pain is decreased ha1 01:00 Drug: Promethazine PO 25 mg PO once Route: PO; ha1 01:20 Follow up: Response: No adverse reaction; Marked relief of symptoms ha1 Not Given (Patient Refused): boostrix tdap0.5 ml IM once; as a single dose ha1 Disposition Summary: 03/18/25 00:30 Discharge Ordered Problem: new sp4 Symptoms: have improved sp4 Condition: Stable sp4 Diagnosis - Right foot great toe proximal phalanx fracture, initial encounter sp4 - Right foot second toe proximal phalanx fracture, initial encounter sp4 - Right foot sprain, acute fall out of swimming pool, acute head injury, acute right sp4 elbow contusion, acute right elbow abrasion, acute right knee contusion, acute right knee abrasion Followup: sp4 - With: Macario Elias MD - When: 7 - 10 days - Reason: Recheck today's complaints Discharge Instructions: - Discharge Summary Sheet sp4 - Crush Injury of the Foot, [id number] sp4 Forms: - Work release form sp4 - Patient Portal Instructions sp4 Prescriptions: - Ibuprofen 800 mg Oral Tablet - take 1 tablet ORAL route every 8 hours As needed take with food; 30 tablet; sp4 Refills: 0, Product Selection Permitted - Tramadol 50 mg Oral tablet - take 1 tablet ORAL route every 8 hours as needed; 20 tablet; Refills: 0, sp4 Product Selection Permitted - methocarbamol 750 mg Oral tablet - take 2 tablets ORAL route every 8 hours for 3 days PRN pain; 60 tablet; sp4 Refills: 0, Product Selection Permitted Signatures: Dispatcher [employer] EDMS Kalli Suarez RN RN ha1 Erasmo Frausto MD MD sp4 Corrections: (The following items were deleted from the chart) 03/17 21:41 21:41 Foot Right 3 View+RAD.RAD.BRZ ordered. EDMS EDMS :42 21:42 Ankle Right 3 View+RAD.RAD.BRZ ordered. EDMS EDMS
--- NOTE | 2025-03-18 00:31 | ER ---
Nurse's Notes [facility] Name: Alejandra Humphrey Age: 64 yrs Sex: Female : 1960 Arrival Date: 03/17/2025 Time: 21:14 Bed 11 Private MD: Diagnosis: Right foot great toe proximal phalanx fracture, initial encounter;Right foot second toe proximal phalanx fracture, initial encounter;Right foot sprain, acute fall out of swimming pool, acute head injury, acute right elbow contusion, acute right elbow abrasion, acute right knee contusion, acute right knee abrasion Presentation: 03/17 21:29 Chief complaint: EMS states: SHE WAS IN A POOL HAVING SOME ALCOHOL DRINK, WHENEVER SHE ha1 ATTEMPTED TO GET OUT OF THE POOL SHE FELL DOWN. HEMATOMA ON THE BACK OF THE HEAD. ABRASION ON THE RIGHT FOOT. WAS UNCONSCIOUS FOR FEW SECONDS. 21:29 Coronavirus screen: Client denies travel out of the [place] in the last 14 days. Ebola ha1 Screen: No symptoms or risks identified at this time. Initial Sepsis Screen: Does the patient meet any 2 criteria? No. Patient's initial sepsis screen is negative. Does the patient have a suspected source of infection? No. Patient's initial sepsis screen is negative. Risk Assessment: Do you want to hurt yourself or someone else? Patient reports no desire to harm self or others. Onset of symptoms was March 17, 2025. 21:29 Method Of Arrival: EMS: [facility] ha1 21:29 Acuity: BASIA 2 ha1 Triage Assessment: 21:51 General: Appears uncomfortable, Behavior is cooperative. Pain: Complains of pain in ha1 right leg Pain currently is 8 out of 10 on a pain scale. Quality of pain is described as aching. Neuro: Level of Consciousness is awake, alert, obeys commands, Oriented to person, place, time. Cardiovascular: Capillary refill < 3 seconds Patient's skin is warm and dry. Respiratory: Airway is patent Respiratory effort is even, unlabored. GI: No signs and/or symptoms were reported involving the gastrointestinal system. Abdomen is round non-distended. Derm: Skin is pink, warm \T\ dry. Musculoskeletal: Circulation, motion, and sensation intact. Historical: - Allergies: 21:51 Amoxicillin; ha1 21:51 Hydrocodone-Acetaminophen; ha1 - PMHx: 21:51 Depressive disorder; ha1 - Immunization history:: Adult Immunizations unknown. - Infectious Disease History:: Denies. - Social history:: Smoking status: unknown. - Family history:: not pertinent. Screenin:[address] [facility] ED Fall Risk Assessment (Adult) History of falling in the last 3 months, ha1 including since admission Yes- single mechanical fall (1 pt) Confusion or Disorientation No (0 pts) Intoxicated or Sedated Yes (3 pts) Impaired Gait Yes (1 pt) Mobility Assist Device Used No (0 pt) Altered Elimination Yes (1 pt) Score/Fall Risk Level 3 or more points = High Risk Oriented to surroundings, Maintained a safe environment, Educated pt \T\ family on fall prevention, incl call for assistance when getting out of bed, Hourly rounding (assess needs \T\ fall precautionary measures) done. Abuse screen: Denies threats or abuse. Denies injuries from another. Nutritional screening: No deficits noted. Tuberculosis screening: No symptoms or risk factors identified. Primary Survey: 22:00 NO uncontrolled hemorrhage observed. Breathing/Chest: Spontaneous respiratory effort, ha1 equal unlabored respirations, breath sounds clear bilaterally, regular pattern, symmetrical chest rise and fall. Circulation: No external hemorrhage present. Regular and strong central pulse, skin warm/dry/normal color. Disability Pupils are equal, round, reactive to light and accommodation. Exposure/Environment: All clothing and personal items were removed. Forensic evidence collection is not deemed to be indicated at this time. Items placed in patient belonging bag. Assessment: 22:30 Reassessment: Patient and/or family updated on plan of care and expected duration. Pain ha1 level reassessed. Patient is alert, oriented x 3, equal unlabored respirations, skin warm/dry/pink. Vital Signs: 21:41 BP 115 / 78; Pulse 84; Resp 18; Temp 98.2(O); Pulse Ox 98% on R/A; Weight 95.25 kg; oe Height 5 ft. 7 in. ; 23:00 BP 127 / 68; Pulse 79; Resp 18 S; Pulse Ox 98% on R/A; ha1 03/18 01:00 BP 125 / 67; Pulse 81; Resp 16 S; Pulse Ox 98% on R/A; ha1 03/17 21:41 Body Mass Index 32.89 (95.25 kg, 170.18 cm) oe [place] Coma Score: 03/17 21:40 Eye Response: spontaneous(4). Motor Response: obeys commands(6). Verbal Response: ha1 oriented(5). Total: 15. 03/18 20:35 Eye Response: spontaneous(4). Motor Response: obeys commands(6). Verbal Response: sp4 oriented(5). Total: 15. Trauma Score (Adult): 03/17 21:40 Eye Response: spontaneous(1); Verbal Response: oriented(1); Motor Response: obeys ha1 commands(2); Systolic BP: > 89 mm Hg(4); Respiratory Rate: 10 to 29 per min(4); Jacqueline Score: 15; Trauma Score: 12 ED Course: 21:27 Patient arrived in ED. [id number] 21:29 Arm band placed on right wrist. ha1 21:29 Patient has correct armband on for positive identification. Placed in gown. Bed in low ha1 position. Call light in reach. Side rails up X2. Adult w/ patient. 21:29 Provided Education on: PLAN OF CARE . ha1 21:30 Maintain EMS IV. Dressing intact. Good blood return noted. Site clean \T\ dry. Gauge \T\ wells 1 site: 20 G RH. 21:33 Erasmo Frausto MD is Attending Physician. sp4 21:42 Kalli Suarez, ARUN is Primary Nurse. ha1 21:50 Triage completed. ha1 22:27 Elbow Right 3 View XRAY In Process Unspecified. EDMS 22:27 Knee Right 3 View XRAY In Process Unspecified. EDMS 22:27 Foot Right 3 View XRAY In Process Unspecified. EDMS 22:27 Ankle Right 3 View XRAY In Process Unspecified. EDMS 22:52 CT Head C Spine In Process Unspecified. EDMS 03/18 00:29 Macario Elias MD is Referral Physician. sp4 01:00 No provider procedures requiring assistance completed. IV discontinued, intact, ha1 bleeding controlled, No redness/swelling at site. Pressure dressing applied. Administered Medications: 01:00 Drug: Ibuprofen PO 800 mg PO once Route: PO; ha1 01:20 Follow up: Response: No adverse reaction; Marked relief of symptoms; Pain is decreased ha1 01:00 Drug: traMADol PO 100 mg PO once Route: PO; ha1 01:20 Follow up: Response: No adverse reaction; Pain is decreased ha1 01:00 Drug: Promethazine PO 25 mg PO once Route: PO; ha1 01:20 Follow up: Response: No adverse reaction; Marked relief of symptoms ha10 24:26 Not Given (Patient Refused): boostrix tdap0.5 ml IM once; as a single dose ha1 Medication: 00:00 VIS not applicable for this client. ha1 Outcome: 00:30 Discharge ordered by MD. alejandra :25 Discharged to home via wheelchair, with family, ha1 :25 Condition: stable 01:25 Discharge instructions given to patient, Instructed on discharge instructions, follow up and referral plans. medication usage, Demonstrated understanding of instructions, follow-up care, medications, Prescriptions given X 3, :27 Patient left the ED. ha1 Signatures: Dispatcher [employer] EDMS Pernell Salguero Jennifer [id number] Kalli Suarez RN RN ha1 Erasmo Frausto MD MD sp4
[2025-03-18] MEDS ORDERED: PROMETHAZINE 25 MG TABLET ONE (01:12)
[2025-03-18] MEDS ORDERED: IBUPROFEN 400 MG TAB ONE (01:13)
[2025-03-18] MEDS ORDERED: TRAMADOL HCL 50 MG TAB ONE (01:13)
[2025-03-18 01:59] VITALS: BP 115/78; TEMP 98.2; O2SAT 98
== END 2025-03-18 01:27 | disposition home or self-care (01) ==
LOC: ER 21:14
DX: S92.411A Displaced fracture of proximal phalanx of right great toe, initial encounter for closed fracture (principal); S92.511A Displaced fracture of proximal phalanx of right lesser toe(s), initial encounter for closed fracture; S93.601A Unspecified sprain of right foot, initial encounter; S09.90XA Unspecified injury of head, initial encounter; S50.311A Abrasion of right elbow, initial encounter; S80.211A Abrasion, right knee, initial encounter; S50.01XA Contusion of right elbow, initial encounter; S80.01XA Contusion of right knee, initial encounter; W18.30XA Fall on same level, unspecified, initial encounter
CPT/HCPCS: 70450; 72125; 73630; 73080; 73562; 73610; 99284; Q0169